=== PATIENT | female | born 1975 | race Caucasian/White ===

== ENCOUNTER 2018-06-26 11:58 | Emergency (ER) | payer OTHER ==
[~2018-06-26] VITALS: Ht 160 cm; Wt 102.1 kg
[2018-06-26 13:20] VITALS: BP 121/71
[2018-06-26] MEDS ORDERED: IBUPROFEN 600600 M1 PO (13:48)
[2018-06-26] MEDS ORDERED: MUCINEX D ER 61 EACH PO (13:50)
== END 2018-06-26 13:20 | disposition home or self-care (01) ==
LOC: ER 11:58
DX: B34.9 Viral infection, unspecified (principal); Z88.0 Allergy status to penicillin